=== PATIENT | female | born 1975 | race Two or more races ===

== ENCOUNTER 2019-04-21 15:16 | Emergency (ER) | payer MEDICAID ==
[~2019-04-21] VITALS: Ht 162.6 cm; Wt 53.0 kg
[2019-04-21 15:21] VITALS: BP 117/87
== END 2019-04-21 17:35 | disposition left against medical advice (07) ==
LOC: ER 15:16
DX: M54.5 Low back pain (principal); Z53.21 Procedure and treatment not carried out due to patient leaving prior to being seen by health care provider